=== PATIENT | female | born 1955 ===

== ENCOUNTER 2021-02-11 08:23 | Outpatient (CLI) | payer MEDICARE | END 2021-02-11 08:24 | disposition home or self-care (01) | LOC: NM 08:23 | PROVIDERS: ATTEND Psychiatry & Neurology Neurology | DX: G25.2 Other specified forms of tremor (principal); G20 Parkinson's disease; G80.9 Cerebral palsy, unspecified; F02.80 Dementia in other diseases classified elsewhere, unspecified severity, without behavioral disturbance, psychotic disturbance, mood disturbance, and anxiety | CPT/HCPCS: 78803; A9584 ==